=== PATIENT | female | born 1945 | race Caucasian/White ===

== ENCOUNTER 2018-11-28 18:02 | Emergency (ER) | payer MEDICARE ==
[~2018-11-28] VITALS: Ht 157.5 cm; Wt 86.2 kg
[~2018-11-28 18:02] MED LIST: ACYC800 PO; ANAS1; ANAS1 PO; ASPI81EC; ASPI81EC PO; ATEN100; ATEN50; Abilify2 MG; CALCAVITD PO; CARV25 PO; CILO100 PO; CILO50; CILO50 PO; CIPR500 PO; CITA10S PO; Crestor20 MG; ESOM20; FOLI400 PO; HYDCHL25; HYDMOR2 PO; HYDR1TAB94 PO; HYDSUL200 PO; IBUP600 PO; IBUP800; IBUP800 PO; LOSA25; LOSA25 PO; MELA3; METO50ER PO; MULVITA PO; OMEP20ER PO; OXYACE5T; OXYACE5T PO; OXYC5 PO; POTCHL20ER PO; PROM25 PO; ROSU10TA PO; TOPI100; TOPI100 PO; VENL150ER; VYTORIN
[2018-11-28] MEDS ORDERED: Hydrocortiso453.6 G1 TOP (18:49)
[2018-11-28] MEDS ORDERED: CLOTRIMAZOLE TOP (18:49)
== END 2018-11-28 19:01 | disposition home or self-care (01) ==
LOC: ER 18:02
DX: B37.2 Candidiasis of skin and nail (principal); Z88.5 Allergy status to narcotic agent; Z88.8 Allergy status to other drugs, medicaments and biological substances; Z79.899 Other long term (current) drug therapy; Z79.82 Long term (current) use of aspirin; I25.2 Old myocardial infarction; Z85.3 Personal history of malignant neoplasm of breast; I10 Essential (primary) hypertension; G40.909 Epilepsy, unspecified, not intractable, without status epilepticus; Z87.891 Personal history of nicotine dependence
CPT/HCPCS: 99282

== ENCOUNTER → 2019-10-23 | Outpatient (CLI) | payer MEDICARE ==
[~2019-10-23] MED LIST changes: +CLOTRIMAZOLE TOP; +Hydrocortiso453.6 G1 TOP
== END | disposition home or self-care (01) ==
LOC: LAB SHORT 07:40 → PLD 07:40
DX: L73.9 Follicular disorder, unspecified (principal); R23.4 Changes in skin texture; L30.8 Other specified dermatitis
CPT/HCPCS: 88305; 88312

== ENCOUNTER 2020-07-02 11:17 | Day surgery (SDC) | payer MEDICARE ==
[~2020-07-02] VITALS: Ht 160 cm; Wt 87.4 kg
== END 2020-07-02 13:50 | disposition home or self-care (01) ==
LOC: ORSCSDS 11:17
PROVIDERS: Internal Medicine Gastroenterology
PROC: 0DB68ZX Excision of Stomach, Via Natural or Artificial Opening Endoscopic, Diagnostic (ICD-10-PCS; principal; 2020-07-02 12:45)
DX: K31.89 Other diseases of stomach and duodenum (principal); R10.13 Epigastric pain; R11.0 Nausea; R14.2 Eructation; Z86.010 Personal history of colon polyps; Z79.899 Other long term (current) drug therapy
CPT/HCPCS: 88305; 88341; 88342; J2704; J7120

== ENCOUNTER → 2020-09-05 | Outpatient (CLI) | payer MEDICARE | END | disposition home or self-care (01) | LOC: LAB SHORT 09:50 → LAB 09:50 | DX: H10.89 Other conjunctivitis (principal) | CPT/HCPCS: 87070; 87205 ==

== ENCOUNTER 2021-07-24 04:54 | Emergency (ER) | payer MEDICARE ==
[~2021-07-24] VITALS: Ht 160 cm; Wt 80.7 kg
[2021-07-24] MEDS ORDERED: LIDO700A20 TOP (05:55)
[2021-07-24] MEDS ORDERED: DOC250 PO (05:55)
[2021-07-24] MEDS ORDERED: OXYACE7.5T PO (05:55)
== END 2021-07-24 07:10 | disposition home or self-care (01) ==
LOC: ER 04:54
DX: S22.41XA Multiple fractures of ribs, right side, initial encounter for closed fracture (principal); I25.2 Old myocardial infarction; I10 Essential (primary) hypertension; Z87.891 Personal history of nicotine dependence; Z79.899 Other long term (current) drug therapy; Z88.5 Allergy status to narcotic agent; Z88.8 Allergy status to other drugs, medicaments and biological substances; W19.XXXA Unspecified fall, initial encounter
CPT/HCPCS: 36415; 71046; 99283-25; A9270

== ENCOUNTER → 2023-04-08 | Outpatient (CLI) | payer MEDICARE ==
[~2023-04-08] MED LIST changes: +DOC250 PO; +LIDO700A20 TOP; +OXYACE7.5T PO
== END | disposition home or self-care (01) ==
LOC: LAB SHORT 16:23 → LAB 16:23
DX: R35.0 Frequency of micturition (principal)
CPT/HCPCS: 87086

== ENCOUNTER 2024-11-09 10:41 | Emergency (ER) | payer OTHER, MEDICARE ==
[~2024-11-09] VITALS: Ht 160 cm; Wt 85.3 kg
[~2024-11-09 10:41] MED LIST changes: -Crestor20 MG; +Crestor40 MG PO
[2024-11-09 11:01] VITALS: BP 159/87
[2024-11-09] MEDS ORDERED: Ketorolac Tromethamine 15mg Vial IV ONE (11:10)
[2024-11-09] MEDS ORDERED: HYDROmorphone HCl/Pf 1MG SYR IV ONE (12:40)
[2024-11-09] MEDS ORDERED: OXAYDO5 M1 PO (18:42)
[2024-11-09] MEDS ORDERED: RX Prepack 6 Tabs Oxycodone 5mg UD ONE (19:00)
== END 2024-11-09 19:07 | disposition home or self-care (01) ==
LOC: ER 10:41
DX: S82.851A Displaced trimalleolar fracture of right lower leg, initial encounter for closed fracture (principal); I25.2 Old myocardial infarction; I10 Essential (primary) hypertension; G40.909 Epilepsy, unspecified, not intractable, without status epilepticus; Z87.891 Personal history of nicotine dependence; Z88.5 Allergy status to narcotic agent; Z88.8 Allergy status to other drugs, medicaments and biological substances; Z79.82 Long term (current) use of aspirin; Z79.899 Other long term (current) drug therapy; W01.0XXA Fall on same level from slipping, tripping and stumbling without subsequent striking against object, initial encounter
CPT/HCPCS: 27818; 73600; 73610; 76000; 96374-59; 96375-59; 99284-25; A9270; J1171; J1885

== ENCOUNTER 2024-11-11 07:11 | Emergency (ER) | payer MEDICARE ==
[~2024-11-11] VITALS: Ht 160 cm; Wt 86.2 kg
[~2024-11-11 07:11] MED LIST changes: +OXAYDO5 M1 PO
[2024-11-11 07:19] VITALS: BP 152/77
[2024-11-11] MEDS ORDERED: SOAANZ20 M1 PO (07:25)
[2024-11-11] MEDS ORDERED: EZET10 PO (07:26)
[2024-11-11] MEDS ORDERED: FENO160 PO (07:26)
[2024-11-11] MEDS ORDERED: OxyCODONE 7.5 mg/Acetam 325 mg TABLET PO ONE (10:40)
== END 2024-11-11 13:05 | disposition home or self-care (01) ==
LOC: ER 07:11
DX: S82.851A Displaced trimalleolar fracture of right lower leg, initial encounter for closed fracture (principal); R29.6 Repeated falls; I25.2 Old myocardial infarction; I10 Essential (primary) hypertension; W19.XXXA Unspecified fall, initial encounter; Z71.89 Other specified counseling; Z87.891 Personal history of nicotine dependence; Z79.899 Other long term (current) drug therapy; Z79.82 Long term (current) use of aspirin; Z88.5 Allergy status to narcotic agent; Z88.8 Allergy status to other drugs, medicaments and biological substances
CPT/HCPCS: 73610; A9270